=== PATIENT | male | born 1975 | race Caucasian/White ===

== ENCOUNTER 2017-06-25 22:52 | Emergency (ER) | payer SELFPAY ==
[~2017-06-25] VITALS: Ht 185.4 cm; Wt 106.6 kg
[2017-06-25 23:21] VITALS: BP 142/78
--- NOTE | 2017-06-25 23:29 | NUR ---
AMBULATED TO ER BED 12
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
[2017-06-25] MEDS ORDERED: IBUPROFEN 800 MG TAB PO ONE (23:45)
[2017-06-26 00:25] VITALS: BP 137/72
== END 2017-06-26 00:25 | disposition home or self-care (01) ==
LOC: MED 22:52
DX: S13.4XXA Sprain of ligaments of cervical spine, initial encounter (principal); S93.402A Sprain of unspecified ligament of left ankle, initial encounter; R03.0 Elevated blood-pressure reading, without diagnosis of hypertension; V43.62XA Car passenger injured in collision with other type car in traffic accident, initial encounter; Y93.I9 Activity, other involving external motion; Y92.488 Other paved roadways as the place of occurrence of the external cause; Y99.8 Other external cause status
CPT/HCPCS: 71010; 72040; 73610; 99284